=== PATIENT | female | born 1985 | race African-American/Black ===

== ENCOUNTER 2020-06-21 19:15 | Inpatient (IN) | payer OTHER ==
[2020-06-22 00:07] LABS: URINE APPEARANCE CLEAR; URINE BILIRUBIN NEGATIVE (NEGATIVE); URINE COLOR YELLOW; URINE GLUCOSE (UA) NEGATIVE (NEGATIVE); URINE KETONE NEGATIVE (NEGATIVE); URINE LEUK ESTERASE NEGATIVE (NEGATIVE); URINE NITRITE NEGATIVE (NEGATIVE); URINE PROTEIN NEGATIVE (NEGATIVE)
[2020-06-22] MEDS ORDERED: DEXTROSE 5%-LACTATED RINGERS 1,000 ML IV SCH (01:15)
[2020-06-22] MEDS ORDERED: LACTATED RINGERS SOLUTION 1,000 ML IV SCH (01:38)
--- NOTE | 2020-06-22 01:41 | HP ---
Past Medical History - Primary Care Physician PCP:: Sarah Allen - Admission Chief Complaint: Ieaking fluid per vagina History of Present Illness: 35 yo . JOSE 07/06/20, EGA 38 weeks, presented with the above. No bleeding per vagina. History Source: Patient Limitations to Obtaining History: No Limitations - Past Medical History ...: 6 ...Para: 2 ...Term: 2 ...: 0 ...Spon : 0 ...Induced : 3 ...Living Children: 2 ... Weeks Gestation by Dates: 38 ...EDC by Dates: 07/06/20 - Past Surgical History Hx Myomectomy: No Hx Transabdominal Cerclage: No Additional Surgical History: Appendectomy - Smoking History Smoking history: Never smoked Have you smoked in the past 12 months: No - Alcohol/Substance Use Hx Alcohol Use: No History of Substance Use: reports: Marijuana - Social History Usual Living Arrangement: Yes: With Parent Do you think of yourself as: Straight/Heterosexual History of Recent Travel: No Home Medications - Allergies Allergies/Adverse Reactions: Allergies Allergy/AdvReac Type Severity Reaction Status Date / Time No Known Allergies Allergy Verified 06/21/20 21:46 Family Medical History Family History: Denies Review of Systems - Review of Systems Constitutional: reports: No Symptoms Eyes: reports: No Symptoms HENT: reports: No Symptoms Neck: reports: No Symptoms Cardiovascular: reports: No Symptoms Respiratory: reports: No Symptoms Gastrointestinal: reports: No Symptoms Genitourinary: reports: No Symptoms Breasts: reports: No Symptoms Reported Musculoskeletal: reports: No Symptoms Integumentary: reports: No Symptoms Neurological: reports: No Symptoms Endocrine: reports: No Symptoms Hematology/Lymphatic: reports: No Symptoms Psychiatric: reports: No Symptoms Physical Exam - Maternity Vital Signs: Vital Signs Temperature 98.2 F 06/21/20 20:00 Pulse Rate 72 06/21/20 20:00 Respiratory Rate 20 06/21/20 20:00 Blood Pressure 131/72 06/21/20 20:00 O2 Sat by Pulse Oximetry (%) Constitutional: Yes: Well Nourished Eyes: Yes: WNL HENT: Yes: WNL Neck: Yes: WNL Cardiovascular: Yes: WNL - Abdominal Exam/OB Fundal Height: 38 Number of Fetuses: Single Presentation: Vertex Contractions: Yes Regularity: Irregular Intensity: Unaware Monitor Mode: External Heart Rate (range): 140 Heart Rate Location: [facility] Category: I Accelerations: Uniform Decelerations: None - Vaginal Exam/OB Vaginal Bleeding: No Speculum Exam: Yes (Pooling of fluid, with positive cough impuise) Dilatation (cm): 1 Effacement (%): 0 Amniotic Membrane Status: Leaking Nitrazine Test: Positive Amniotic Fluid: Yes: Clear Presentation: Vertex/Position Station: -3 - Physical Exam Musculoskeletal: Yes: WNL Extremities: Yes: WNL Edema: No Integumentary: Yes: WNL ...Motor Strength: WNL Psychiatric: Yes: WNL Hemorrhage Risk Assessment - Risk Factors Medium Risk Factors: Yes: None High Risk Factors: Yes: None Risk Score: 1 Risk Level: Medium Risk Problem List - Problems (1) 38 weeks gestation of Code(s): Z3A.38 - 38 WEEKS GESTATION OF (2) membranes, rupture Code(s): [id number] - (3) Leakage of amniotic fluid Code(s): O42.90 - KARINA ROM, 7TH0 BETW RUPT & ONST LABR, UNSP WEEKS OF GEST Assessment/Plan Early term gestation with spontaneous leakage of amniotic fluid Admit L and D for management.
[2020-06-22 01:43] LABS: BASO % 0.1 % (0-2.0); EOS % 0.5 % (0-4.5); HEMOGLOBIN 10.9 GM/dL (10.7-15.3); MCH 28.3 pg (25.7-33.7); MCHC 33.9 g/dl (32.0-36.0); MEAN CELL VOLUME 83.4 fl (80-96); MEAN PLT VOLUME 8.3 fl (7.5-11.1); MONO % 11.3 % (3.8-10.2); NEUT % 63.1 % (42.8-82.8); PLATELET COUNT 233 K/MM3 (134-434); RBC 3.84 M/mm3 (3.60-5.2); RDW 15.1 % (11.6-15.6)
[2020-06-22 01:52] LABS: INR 0.88 (0.83-1.09); PROTHROMBIN TIME (PATIENT) 10.4 SEC (9.7-13.0)
[2020-06-22 01:55] LABS: ACTIVATED PTT 31.3 SECONDS (25.2-36.5)
[2020-06-22] MEDS ORDERED: DINOPROSTONE 10 MG VAGINAL SUPPOSITORY VG ONE (01:55)
[2020-06-22 02:03] LABS: BLOOD UREA NITROGEN 3.5 mg/dL (7-18); CALCIUM 8.2 mg/dL (8.5-10.1); CREATININE 0.5 mg/dL (0.55-1.3); POTASSIUM 3.1 mmol/L (3.5-5.1)
[2020-06-22 02:06] VITALS: BMI 28.3
--- NOTE | 2020-06-22 02:21 | PN ---
Progress Note (short form) - Note Progress Note: Patient comfortably in bed VSS, afebrile EFM - Baseline 140/min, moderate variability, accelerations, no decelerations Pelvic - 1cm/0%/-3/Vertex Plan - Early term gestation with premature rupture of membranes Cervidil inserted for ripening Anticipate vaginal delivery. Problem List - Problems (1) 38 weeks gestation of Code(s): Z3A.38 - 38 WEEKS GESTATION OF (2) membranes, rupture Code(s): [id number] - (3) Leakage of amniotic fluid Code(s): O42.90 - KARINA ROM, 7TH0 BETW RUPT & ONST LABR, UNSP WEEKS OF GEST
[2020-06-22] MEDS ORDERED: BUTORPHANOL TARTRATE 2 MG/ML VIAL ONE (05:11)
[2020-06-22] MEDS ORDERED: PROMETHAZINE HCL 25 MG/1 ML VIAL ONE (05:11)
[2020-06-22] MEDS ORDERED: PROMETHAZINE HCL 25 MG/1 ML VIAL IVPUSH ONE (05:26)
[2020-06-22] MEDS ORDERED: BUTORPHANOL TARTRATE 2 MG/ML VIAL IVPUSH ONE (05:26)
[2020-06-22] MEDS ORDERED: OXYTOCIN 30 UNITS in 0.9% NS 30 UNIT/500 ML INFUS.BAG IVPB SCH (06:00)
[2020-06-22] MEDS ORDERED: LIDOCAINE HCL 1% PRESERVATIVE FREE - 30ML VIAL ONE (08:12)
[2020-06-22] MEDS ORDERED: OXYTOCIN 20 UNITS in 0.9% NS 20 UNIT/1,000 ML INFUS.BAG IV ONE (08:12)
[2020-06-22] MEDS ORDERED: FENTANYL/BUPIVACAINE/NS/PF - PCEA - 50 ML DISP.SYRIN EP ONE (09:33)
[2020-06-22] MEDS ORDERED: BUPIVACAINE HCL/PF 0.25% (2.5MG/ML) 10 ML VIAL ONE (09:36)
[2020-06-22] MEDS ORDERED: NALOXONE HCL 0.4 MG/ML VIAL IVPUSH PRN (09:59)
[2020-06-22] MEDS ORDERED: FENTANYL/BUPIVACAINE/NS/PF - PCEA - 50 ML DISP.SYRIN EP SCH (10:00)
[2020-06-22] MEDS: ELECTROLYTE-148 SOLN 1,000 ML IV SCH (10:00)
--- NOTE | 2020-06-22 10:25 | PN ---
Progress Note (short form) - Note Progress Note: Attending note: patient progressed to 8-9 cm, but unable to push due to pain epidural requested and placed; now very comfortable cervix= 8-9 baseline= 140/ acc/ no deceleration/ moderate variability; contractions q 3 I/P: continue HANNY
[2020-06-22] MEDS ORDERED: OXYTOCIN 30 UNITS in 0.9% NS 30 UNIT/500 ML INFUS.BAG IVPB ONE (11:09)
--- NOTE | 2020-06-22 12:29 | PN ---
Delivery - Delivery Type of Anesthesia: Epidural Episiotomy/Laceration: None (delivered live baby boy; OA position over intact perineum; placenta spontaneosly dlivered with extra lobe; =9-9) EBL (cc): 350 Delivery, Single - Feeding Plan Initial Plan: Exclusive throughout hospitalization
[2020-06-22] MEDS ORDERED: BISACODYL 10 MG SUPP.RECT RC PRN (12:31)
[2020-06-22] MEDS ORDERED: METHYLERGONOVINE MALEATE 0.2 MG/1 ML AMP IM PRN (12:31)
[2020-06-22] MEDS ORDERED: WITCH HAZEL 50% (TUCKS) 40 PAD/JAR PAD TP PRN (12:31)
[2020-06-22] MEDS ORDERED: BENZOCAINE 28 GM HEMORRHOIDAL OINTMENT TP PRN (12:31)
[2020-06-22] MEDS ORDERED: BENZOCAINE 20% 57 GM BOTTLE TP PRN (12:31)
[2020-06-22] MEDS ORDERED: D5W-LR W/ 20 UNITS OXYTOCIN 20 UNIT/1,000 ML INFUS.BAG IV SCH (12:45)
[2020-06-22] MEDS: ACETAMINOPHEN 325 MG TABLET (FP) PO PRN (22:04)
[2020-06-22] MEDS: IBUPROFEN 600 MG TABLET (FP) PO PRN (22:04)
[2020-06-23 09:22] LABS: BASO % 0.2 % (0-2.0); EOS % 0.6 % (0-4.5); HEMATOCRIT 31.3 % (32.4-45.2); HEMOGLOBIN 10.2 GM/dL (10.7-15.3); LYMPH % 19.6 % (8-40); MCH 26.9 pg (25.7-33.7); MCHC 32.4 g/dl (32.0-36.0); MEAN CELL VOLUME 82.8 fl (80-96); MONO % 7.1 % (3.8-10.2); NEUT % 72.5 % (42.8-82.8); PLATELET COUNT 218 K/MM3 (134-434); RBC 3.78 M/mm3 (3.60-5.2); RDW 15.6 % (11.6-15.6); WHITE BLOOD COUNT 7.7 K/mm3 (4.0-10.0)
[2020-06-23] MEDS: ELECTROLYTE-148 SOLN 1,000 ML IV SCH (11:21)
[2020-06-23] MEDS: IBUPROFEN 600 MG TABLET (FP) PO PRN (11:25)
[2020-06-23] MEDS: ACETAMINOPHEN 325 MG TABLET (FP) PO PRN (11:26)
--- NOTE | 2020-06-23 12:36 | PN ---
Post Progress Note Post Day: 1 Type of Delivery: Vital Signs: Vital Signs Temperature 98.1 F 06/23/20 10:00 Pulse Rate 84 06/23/20 10:00 Respiratory Rate 18 06/23/20 10:00 Blood Pressure 105/58 L 06/23/20 10:00 O2 Sat by Pulse Oximetry (%) 100 06/22/20 10:15 Breast Exam: Yes: Soft Uterus: Yes: Fundus Firm, Fundus below umbilicus, Non-tender Abdomen/GI: Yes: Abdomen soft, Tolerating PO Lochia: Yes: Rubra Lochia, amount: Small Extremities: Yes: Calves non-tender Activity: Ambulating - Labs Labs: CBC WBC 7.7 K/mm3 (4.0-10.0) 06/23/20 09: RBC 3.78 M/mm3 (3.60-5.2) 06/23/20 09:01 Hgb 10.2 GM/dL (10.7-15.3) L 06/23/20 09: Hct 31.3 % (32.4-45.2) L 06/23/20 09: MCV 82.8 fl (80-96) 06/23/20 09: MCH 26.9 pg (25.7-33.7) 06/23/20 09: MCHC 32.4 g/dl (32.0-36.0) 06/23/20 09:01 RDW 15.6 % (11.6-15.6) 06/23/20 09: Plt Count 218 K/MM3 (134-434) 06/23/20 09: MPV 8.0 fl (7.5-11.1) 06/23/20 09:01 Absolute Neuts (auto) 5.6 K/mm3 (1.5-8.0) 06/23/20 09: Neutrophils % 72.5 % (42.8-82.8) 06/23/20 09: Lymphocytes % 19.6 % (8-40) D 06/23/20 09:01 Monocytes % 7.1 % (3.8-10.2) 06/23/20 09: Eosinophils % 0.6 % (0-4.5) 06/23/20 09:01 Basophils % 0.2 % (0-2.0) 06/23/20 09:01 Nucleated RBC % 0 % (0-0) 06/23/20 09:01 Problem List - Problems (1) 38 weeks gestation of Code(s): Z3A.38 - 38 WEEKS GESTATION OF (2) membranes, rupture Code(s): [id number] - (3) Leakage of amniotic fluid Code(s): O42.90 - KARINA ROM, 7TH0 BETW RUPT & ONST LABR, UNSP WEEKS OF GEST Assessment/Plan S/P , ppd # 1, with no complaints Continue management
[2020-06-23] MEDS ORDERED: SENNOSIDES/DOCUSATE COMBO (SENNA PLUS) TABLET (UD) PO PRN (22:00)
[2020-06-24 09:39] VITALS: BP 121/62; PULSE 74; TEMP 98
--- NOTE | 2020-06-24 10:11 | DS ---
Physical Exam-PROPERTY MANAGEMENT COORDINATOR Vital Signs: Vital Signs Temperature 98.0 F 06/24/20 09:00 Pulse Rate 74 06/24/20 09:00 Respiratory Rate 19 06/24/20 09:00 Blood Pressure 121/62 06/24/20 09:00 O2 Sat by Pulse Oximetry (%) 99 06/24/20 09:00 Labs: CBC, BMP 06/23/20 09:01 06/22/20 01:20 Delivery - Delivery Type of Anesthesia: Epidural Episiotomy/Laceration: None EBL (cc): 350 Delivery, Single - Stages of Labor Date 1st Stage Initiatied: 06/21/20 Time 1st Stage Initiated: 22:00 Date 2nd Stage Initiated: 06/22/20 Time 2nd Stage Initiated: 11:00 Date of Delivery: 06/22/20 Time of Delivery: 11:24 Time Placenta Delivered: 11:35 - Condition of Tile Setter Apprentice/Radiation Control Technician Present: No Infant Gender: Male Weight: 2.807 kg Position: Left, OA Total Hours ROM (Hrs/Mins): 16hrs - 1 Minute Total Score: 9 5 Minutes Total Score: 9 - Feeding Plan Initial Plan: Exclusive throughout hospitalization Remarks - Remarks Remarks: pt. without complaints vss - af abd: soft, nt, fundus firm ve: min lochia, intact ext: no calf tenderness b/l a/p PPD 2 pt. doing well d/c plan for today to home f/u w provider for PP check in 4-6 weeks Discharge Summary Problems reviewed: Yes Reason For Visit: LABOR ADMIT Current Active Problems 38 weeks gestation of (Acute) membranes, rupture (Acute) Leakage of amniotic fluid (Acute) Procedures: Principal: Hospital Course: admitted in labor underwent uncomplicated PP course uneventful Condition: Good - Instructions Diet, Activity, Other Instructions: regular diet. activity as tolerated, but avoid strenuous activity, heavy lifting and intercourse. pericare Referrals: Emigdio Zimmerman MD [Staff Physician] - 1 Month (4-6 weeks for PP visit at [facility]) Disposition: HOME - Home Medications Comprehensive Discharge Medication List: Ambulatory Orders Ibuprofen [Motrin -] 600 mg PO Q6H PRN #50 tablet 06/24/20 Witch [employer] 50% (Tucks) [Tucks Pads -] 1 pad TP PRN PRN pad 06/24/20
== END 2020-06-24 13:15 | disposition home or self-care (01) | DRG 560 ==
LOC: JDEL 19:15 → JLDR 06-22 01:08 → J3W 06-22 14:29
PROVIDERS: ADMIT Obstetrics & Gynecology; ATTEND Obstetrics & Gynecology
PROC: 10E0XZZ Delivery of Products of Conception, External Approach (ICD-10-PCS; principal; 2020-06-22)
PROC: 3E0P7VZ Introduction of Hormone into Female Reproductive, Via Natural or Artificial Opening (ICD-10-PCS; 2020-06-22)
DX: O42.02 Full-term premature rupture of membranes, onset of labor within 24 hours of rupture (principal); Z3A.38 38 weeks gestation of pregnancy; Z37.0 Single live birth
CPT/HCPCS: 36415; 59025; 59409; 76819-TC; 80048; 81003; 85025; 85610; 85730; 86780; 86850; 86900; 86901; U0003